=== PATIENT | female | born 1975 | race African-American/Black ===

== ENCOUNTER 2018-01-27 09:00 | Emergency (ER) | payer SELFPAY ==
[~2018-01-27] VITALS: Ht 162.6 cm; Wt 65.0 kg
[2018-01-27] MEDS ORDERED: SODIUM CHLORIDE 0.9% 1,000 ML IV ONE (09:52)
[2018-01-27 11:03] LABS: CLARITY URINE CLEAR (CLEAR); COLOR URINE YELLOW (YELLOW); KETONES URINE NEGATIVE (NEGATIVE); LEUKOCYTE ESTERASE URINE NEGATIVE (NEGATIVE); NITRITE URINE NEGATIVE (NEGATIVE); OCCULT BLOOD URINE NEGATIVE (NEGATIVE); PROTEIN URINE NEGATIVE (NEGATIVE); SPECIFIC GRAVITY URINE 1.003 (1.005-1.030); UROBILINOGEN URINE 0.2 E.U./dL (0.2-1.0)
[2018-01-27 11:20] LABS: *BENZODIAZEPINES SCREEN URINE NEGATIVE (NEGATIVE); *COCAINE SCREEN URINE NEGATIVE (NEGATIVE)
[2018-01-27 11:21] LABS: *AMPHETAMINES SCREEN URINE NEGATIVE (NEGATIVE); CANNABINOID URINE SCREEN NEGATIVE (NEGATIVE); METHADONE URINE SCREEN NEGATIVE (NEGATIVE); OPIATES URINE SCREEN NEGATIVE (NEGATIVE); PHENCYCLIDINE URINE SCREEN NEGATIVE (NEGATIVE)
[2018-01-27 11:36] LABS: *BARBITURATES SCREEN URINE NEGATIVE (NEGATIVE)
[2018-01-27 11:59] LABS: HEMATOCRIT. 29.6 % (36.0-48.0); HEMOGLOBIN. 9.5 g/dL (12.0-16.0); MEAN CORPUSCULAR HEMOGLOBIN 27.5 pg (28.0-32.0); MEAN CORPUSCULAR VOLUME 85.3 fL (81.0-99.0); MEAN PLATELET VOLUME 6.6 fl (7.4-10.4); PLATELET 168 x1000/uL (130-400); RED BLOOD CELL COUNT 3.47 mill/uL (4.2-5.4); RED CELL DISTRIBUTION WIDTH 19.6 % (11.6-14.6)
[2018-01-27 12:05] LABS: CHLORIDE 107 mEq/L (98-107)
[2018-01-27 12:36] LABS: ETHANOL BLOOD 414 mg/dL
[2018-01-27 12:48] LABS: PLATELET ESTIMATE NORMAL
[2018-01-27 13:23] VITALS: BP 136/94
[2018-01-27 13:41] LABS: AMMONIA 40 uMol/L (<32)
== END 2018-01-27 14:54 | disposition left against medical advice (07) ==
LOC: ER 09:00
DX: F10.229 Alcohol dependence with intoxication, unspecified (principal); M06.9 Rheumatoid arthritis, unspecified; E83.51 Hypocalcemia; D64.9 Anemia, unspecified; D72.819 Decreased white blood cell count, unspecified; Y90.8 Blood alcohol level of 240 mg/100 ml or more
CPT/HCPCS: 36415; 70450; 80053; 80305; 81003; 81025; 82140; 85025; 99285; G0482; J7030; Z7610